=== PATIENT | female | born 1995 | race Two or more races ===

== ENCOUNTER 2016-08-08 09:28 | Outpatient (CLI) | payer OTHER, MEDICAID | END 2016-08-08 10:49 | disposition home or self-care (01) | LOC: FBCOUT 09:28 → FBC 09:29 → FBCOUT 10:49 | PROVIDERS: ATTEND Obstetrics & Gynecology | DX: O26.899 Other specified pregnancy related conditions, unspecified trimester (principal); Z3A.00 Weeks of gestation of pregnancy not specified | CPT/HCPCS: 59025; 81002; G0463 ==

== ENCOUNTER 2016-09-21 16:28 | Outpatient (CLI) | payer OTHER, MEDICAID ==
--- NOTE | 2016-09-21 22:05 | US ---
BIOPHYSICAL PROFILE COMPARISON: 05/21/2016 HISTORY: 21 years old. Gestational age 40 weeks 1 day. Postdates. FINDINGS: breathing movements: 2 motion: 2 tone: 2 Amniotic fluid volume: 2 (SHYANN 6.4 cm) the deepest pocket 5.5 cm. heart rate: 141 bpm Presentation: Cephalic IMPRESSION: 1. Normal biophysical profile score 8 out of 8. 2. Amniotic fluid volume 6.4 cm, deepest pocket 5.5 cm. 3. Cephalic position.
== END 2016-09-21 17:40 | disposition home or self-care (01) ==
LOC: FBCOUT 16:28 → FBC 16:29 → FBCOUT 17:40
PROVIDERS: ATTEND Obstetrics & Gynecology
DX: O48.0 Post-term pregnancy (principal); Z3A.40 40 weeks gestation of pregnancy

== ENCOUNTER 2016-09-24 02:57 | Outpatient (CLI) | payer OTHER, MEDICAID ==
[2016-09-24 03:36] VITALS: BMI 31.1
== END 2016-09-24 07:38 | disposition home or self-care (01) ==
LOC: FBCOUT 02:57 → FBC 02:57 → FBCOUT 07:38
PROVIDERS: ATTEND Obstetrics & Gynecology
DX: O47.9 False labor, unspecified (principal); Z3A.00 Weeks of gestation of pregnancy not specified
CPT/HCPCS: 59025; G0463

== ENCOUNTER 2016-09-24 16:08 | Outpatient (CLI) | payer OTHER, MEDICAID ==
[2016-09-24 16:59] VITALS: BMI 31.1
[2016-09-24] MEDS ORDERED: MORPHINE SULFATE 10 MG/ML SYRINGE IM ONE (19:40)
[2016-09-24] MEDS ORDERED: PROMETHAZINE HCL 25 MG/ML VIAL IM ONE (19:40)
== END 2016-09-24 20:44 | disposition home or self-care (01) ==
LOC: FBCOUT 16:08 → FBC 16:08 → FBCOUT 20:44
PROVIDERS: ATTEND Obstetrics & Gynecology
DX: O47.9 False labor, unspecified (principal); Z3A.00 Weeks of gestation of pregnancy not specified
CPT/HCPCS: 96372; 59025; J2270; J2550; G0463

== ENCOUNTER 2016-09-26 09:57 | Inpatient (IN) | payer OTHER, MEDICAID ==
[2016-09-26 10:53] VITALS: BMI 30.7
[2016-09-26] MEDS ORDERED: LACTATED RINGERS 1,000 ML IV PRN (11:31)
[2016-09-26] MEDS ORDERED: OXYTOCIN IN LR 500 ML IV ONE (11:31)
[2016-09-26] MEDS ORDERED: LACTATED RINGERS 1,000 ML ONE (12:21)
[2016-09-26] MEDS ORDERED: IV START KIT ONE (12:21)
[2016-09-26] MEDS ORDERED: PUMP TUBING ONE (12:22)
[2016-09-26] MEDS ORDERED: LIDOCAINE Viscous 2% 15 ML UDCUP ONE (12:22)
[2016-09-26] MEDS ORDERED: MINERAL OIL 25 ML BOT ONE (12:22)
[2016-09-26] MEDS ORDERED: OXYTOCIN 10 UNITS/ML VIAL ONE ×2 (12:22→21:02)
[2016-09-26] MEDS ORDERED: LIDOCAINE 1% (PRES FREE) 30 ML VIAL ONE (12:22)
[2016-09-26] MEDS ORDERED: OXYTOCIN IN LR 0 ML IV ONE (12:23)
[2016-09-26] MEDS ORDERED: SODIUM CHLORIDE 0.9% FLUSH 10 ML ONE (12:23)
--- NOTE | 2016-09-26 12:44 | HP ---
Gay Cedillo : 1995 HISTORY OF PRESENT ILLNESS: This is a 21-year-old female with estimated date of delivery 09/20/2016 at 40.6 weeks admitted in labor. She was seen in the office today with having strong contractions since around 11:00 p.m. yesterday. She was sent to [facility] for monitoring labor. In the office she was 4 cm and 90% effaced and then rechecked in the [facility] and found to be 5 cm. She did not give any history of ruptured membranes at home and the membranes did feel intact during her office visit. 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 Sexually transmitted diseases were negative. PAST MEDICAL HISTORY: Negative. SOCIAL HISTORY: Nonsmoker, nondrinker. PAST SURGICAL HISTORY: Negative. FAMILY HISTORY: Negative. PHYSICAL EXAMINATION: GENERAL: Healthy female in labor. HEENT: Normal. NECK: Supple. Thyroid not palpable, soft, no masses. HEART: Regular sinus rhythm. No murmurs. LUNGS: Clear. ABDOMEN: Gravid, estimated weight 6-1/2 to 7 pounds. PELVIC: From the office showed the cervix to be 4 cm vertex presentation, -1 station, and 90% effaced. IMPRESSION: 40.6 week intrauterine in labor. PLAN: Anticipate vaginal delivery. She is Group B Strep negative. JOB: [id number]
--- NOTE | 2016-09-26 13:08 | PDOC36 ---
Provider Note Note: ob note: cervix 6cm/90% effaced/vertex 0 station. category 1 tracing. arom performed, blood tinged, watery amniotic fluid. patient declined epidural and analgesics.
[2016-09-26 13:29] LABS: HEMATOCRIT 32.9 % (37.0-47.0); MEAN CELL VOLUME 87.7 fl (81.0-99.0); MEAN CORPUSCULAR HEMOGLOBIN 29.3 pg (27.0-31.0); MEAN CORPUSCULAR HGB CONC 33.4 g/dl (33.0-37.0); RED CELL DISTRIBUTION WIDTH 13.8 % (11.5-14.5)
[2016-09-26 16:01] LABS: SPECIFIC GRAVITY 1.015 (1.001-1.030); URINE BILIRUBIN NEGATIVE (NEGATIVE); URINE BLOOD 3+ (NEGATIVE); URINE GLUCOSE (UA) NEGATIVE (NEGATIVE); URINE LEUKOCYTE ESTERASE 2+ (NEGATIVE); URINE NITRITE NEGATIVE (NEGATIVE); URINE PROTEIN 2+ (NEGATIVE); URINE UROBILINOGEN NORMAL (0-1 mg/dl)
[2016-09-26 16:05] LABS: URINE APPEARANCE TURBID; URINE COLOR DARK YELLOW
[2016-09-26 16:14] LABS: URINE AMORPHOUS SEDIMENT MODERATE; URINE RBC 15-20 /hpf; URINE WBC 30-40 /hpf
[2016-09-26 16:15] LABS: URINE BACTERIA RARE
[2016-09-26] MEDS ORDERED: BUTORPHANOL TARTRATE 1 MG/ML VIAL IV ONE (19:44)
--- NOTE | 2016-09-26 20:22 | PDOC36 ---
Provider Note Note: ob note: cervix 6-7cm/100%/vertex 0 station. rot position. i discussed minimal cervical change since 13:05 hrs and possible causes, including large baby, position, narrow pelvis, insufficient contractions, short stature. watery meconium present. patient has been having regular contractions every 2-3 minutes since admission with initial progress for 4 to 6 cm. category 2 tracing with variable decelerations. discussed pitocin, which i am not recommending because of possibility of hyperstimulation of uterus. discussed continuing labor vs c section. patient on last exam at 19:45hrs, wanted to wait another hour. staadol requested and ordered. imp: arrest of decent and dilatation, category 2 tracing.
[2016-09-26] MEDS ORDERED: PHENYLEPHRINE 10 MG/1 ML (1%) VIAL ONE (21:02)
[2016-09-26] MEDS ORDERED: FENTANYL 100 MCG/2 ML VIAL ONE (21:02)
[2016-09-26] MEDS ORDERED: SPINAL PROCEDURAL TRAY 1 EACH ONE (21:02)
[2016-09-26] MEDS ORDERED: ONDANSETRON 4 MG/2ML 2 ML VIAL ONE (21:02)
[2016-09-26] MEDS ORDERED: MORPHINE SULFATE (DURAMORPH) 1 MG/ML 10ML AMP ONE (21:02)
[2016-09-26] MEDS ORDERED: SODIUM CHLORIDE 0.9% FLUSH 0 ML ONE (21:02)
[2016-09-26] MEDS ORDERED: CEFAZOLIN SODIUM 2 GRAM DUPLEX 2 G in Premix (D5W) 50 ml 1 EACH IV PRN (21:10)
--- NOTE | 2016-09-26 21:10 | PDOC36 ---
Provider Note Note: ob note: cervix unchanged at 6-7 cm/100 effaced/vertex 0 station with caput present. minimal variability on tracing. discussed failure of decent and dilation with patient, partner and family, reviewed reasons for cesarian section , complications but not limited to infections, hemorrhage, anesthesia accidents , and alternatives including continuation of labor. patient, family and partner at this time would like to proceed with cesarian section. all questions were addressed using simple language. informed consent taken in presence of third constitution party.
[2016-09-26] MEDS ORDERED: LACTATED RINGERS 1,000 ML IV SCH (21:15)
[2016-09-26] MEDS ORDERED: CITRIC ACID/SODIUM CITRATE 15 ML UDCUP PO ONE (21:16)
[2016-09-26] MEDS ORDERED: FAMOTIDINE 10 MG/ML 2ML VIAL ONE (21:16)
[2016-09-26] MEDS ORDERED: CEFAZOLIN SODIUM 2 GRAM DUPLEX 50 ML IV ONE (21:34)
[2016-09-26] MEDS ORDERED: KETOROLAC TROMETHAMINE 30 MG/ML 1 ML VIAL ONE (22:20)
[2016-09-26] MEDS ORDERED: DIPHENHYDRAMINE HCL 50 MG/1 ML VIAL IV PRN ×2 (22:37→23:00)
[2016-09-26] MEDS ORDERED: LANOLIN 50 APPLIC/7G TUBE TP PRN (22:37)
[2016-09-26] MEDS ORDERED: DIPHENHYDRAMINE HCL 25 MG CAPSULE PO PRN (22:37)
--- NOTE | 2016-09-26 22:37 | PCMBPN ---
Brief Post Op Note: Date of Procedure: 09/26/16 Start Time: Preoperative Diagnosis: 1. failure of decent and dilatation, transverse arrest, category 2 tracing Postoperative Diagnosis: 1. Same Procedure: primary lower segment cesarian section Surgeon: Edmond oFster Assist:ms. mirian mayers Anesthesia: spinal, mr jimenez Findings: term sized uterus,both ovaries and tubes normal, meconium stained fluid, live baby boy, weight 7 lbs 2 oz, rot position, 8/9 at one and five minutes, placenta meconium stained and intact Condition: stable Complications: none IV Fluids: mLs of LR Urine Output: mLs Estimated Blood Loss: 400 mLs Tourniquet Time: N/A Specimens: placenta to pathology Implants: Drains: N/A closure mariano. patient tolerated procedure well and was returned to recovery room in stable condition with dutta draining clear yellow urine.
[2016-09-26] MEDS ORDERED: NALOXONE HCL 0.4 MG/ML VIAL IV PRN (23:00)
[2016-09-26] MEDS ORDERED: PROMETHAZINE HCL 25 MG/ML VIAL IM PRN (23:00)
[2016-09-26] MEDS ORDERED: NALBUPHINE HCL 20 MG/ML AMP IV PRN (23:00)
[2016-09-26] MEDS ORDERED: EPHEDRINE SULFATE 50 MG/ML 1ML VIAL IV PRN (23:00)
[2016-09-26] MEDS ORDERED: HYDROMORPHONE HCL 2 MG/ML SYRINGE IV PRN (23:00)
[2016-09-26] MEDS ORDERED: KETOROLAC TROMETHAMINE 30 MG/ML 1 ML VIAL IV SCH (23:00)
[2016-09-26] MEDS ORDERED: HYDROMORPHONE HCL 1 MG/ML SYRINGE IV PRN (23:00)
[2016-09-26] MEDS ORDERED: ONDANSETRON 4 MG/2ML 2 ML VIAL IV PRN (23:00)
[2016-09-27] MEDS: OXYCODONE/ACETAMINOPHEN 5/325 MG TABLET PO PRN (01:44)
[2016-09-27] MEDS: LACTATED RINGERS 1,000 ML IV SCH ×3 (01:44→21:33)
[2016-09-27] MEDS: KETOROLAC TROMETHAMINE 30 MG/ML 1 ML VIAL IV SCH ×3 (04:10→16:57)
[2016-09-27 07:05] LABS: HEMATOCRIT 28.9 % (37.0-47.0); HEMOGLOBIN 9.5 gm/l (12.0-16.0); MEAN CELL VOLUME 88.4 fl (81.0-99.0); MEAN CORPUSCULAR HEMOGLOBIN 29.1 pg (27.0-31.0); MEAN CORPUSCULAR HGB CONC 32.9 g/dl (33.0-37.0); RED CELL DISTRIBUTION WIDTH 14.2 % (11.5-14.5)
--- NOTE | 2016-09-27 07:33 | OP ---
Gay Cedillo : 1995 NAME OF OPERATION: Primary lower segment section. PREOPERATIVE DIAGNOSIS: Failure of descent and dilatation, transverse arrest, and category II tracing. POSTOPERATIVE DIAGNOSES: Failure of descent and dilatation, transverse arrest, and category II tracing. CIRCULATION CLERK: Dr. Edmond Dumont. TRADE SHOW MANAGER: Ms. Parra. ANESTHESIA: Steve, Spinal. DESCRIPTION OF PROCEDURE: Dictation begins with patient in the supine position after spinal anesthesia was performed. The Trinidad was draining clear yellow urine at the onset of the procedure. The abdomen was prepared with Chloraprep and draped in the usual manner for pfannenstiel incision after appropriate drying time. After a timeout was performed the skin was tested and found to be with complete anesthesia and then a knife was used to make a pfannenstiel incision through the skin which was carried down to the subcutaneous tissue to the rectus abdominis fascia which was nicked with a knife and carried laterally with Jarrett scissors. All bleeding points were clamped with Leona's and bovied. The superior portion of the fascia was then grasped with Dinesh clamps. The median raphe divided with Jarrett scissors and a similar procedure was performed in the lower end of the incision. The muscle was then split in the mid portion. The peritoneum identified and picked up with two Leona clamps, divided in between with the Metzenbaum scissors, and then the peritoneum was stretched laterally. Findings included a term sized uterus, both ovaries and tubes appeared normal. A Nunnelly retractor was inserted lower in the incision and then anterior visceroperitoneum was grasped with a tissue forceps, nicked with the Metzenbaum scissors, and carried laterally with the same scissors. The bladder flap was then bluntly dissected down and replaced underneath the De retractor. A knife was then used to make a lower uterine incision which was stretched laterally. There was meconium stained fluid noted and then a live baby body was delivered from the ROT position. He cried spontaneously. He was delivered uneventfully through the incision. The was 8 and 9 at one and five minutes respectively. The weight was 7 pounds 2 ounces. With the baby out the cord was clamped twice with 2 Leona clamps, divided in between with bandage scissors and the baby was given to the nurses for care. Cord blood was obtained and then the placenta was delivered manually and intact. The placenta was meconium stained and will be sent to pathology. With the placenta out the uterus was wiped clean of membranes and blood clots. Ring forceps were placed at the 3, 6, 9, and 12 o'clock positions of the uterus. The uterus was closed in two layers with #1 Chromic continuous interlocking sutures, the second layer imbricating the first. One additional bleeding point in the right corner was individually sutures with the same material resulting in complete hemostasis. Now with sponge and instrument count reported as correct and complete hemostasis achieve the rectus abdominis muscle was reapproximated with 1 Chromic interrupted sutures x3 and then the fascia was closed in right and left halves with 1 Vicryl continuous sutures locking the first stitch on either side. Subcutaneous bleeding points were bovied prior to closure of skin. The skin was closed with mariano. Estimated blood loss was 400 mL. Patient tolerated procedure well and was returned to recovery room in stable condition with a Trinidad draining clear yellow urine. Ancef was given prior to the onset of surgery. JOB: [id number]
--- NOTE | 2016-09-27 09:00 | PDOC44 ---
- Subjective Day: 1 (feels well) Reports Flatus, Reports Pain Tolerable, Reports , Reports Lochia Light, Reports Tolerating Clear Liquids, Denies Nausea, Denies Vomiting, Denies Fever - Objective Temp Pulse Resp BP Pulse Ox 98.3 F 97 16 106/55 100 09/27/16 06:11 09/27/16 06:11 09/27/16 06:11 09/27/16 06:11 09/27/16 01:59 Lab Results 09/27/16 09/26/16 06:15 12:50 WBC 18.3 H 17.3 H RBC 3.27 L 3.75 L Hgb 9.5 L 11.0 L Hct 28.9 L 32.9 L Plt Count 198 238 09/27/16 06:15 MCHC 32.9 L Current Medications Generic Name Dose Route Start Last Admin Trade Name Freq PRN Reason Stop Dose Admin Diphenhydramine HCl 25 - 50 mg 09/26/16 22:37 Benadryl PO Q6H PRN Itching (Mild/Moderate) Diphenhydramine HCl 25 - 50 mg 09/26/16 22:37 Benadryl IV Q6H PRN Itching (Severe) Diphenhydramine HCl 25 - 50 mg 09/26/16 23:00 Benadryl IV 09/27/16 21:40 Q4H PRN Itching Docusate Sodium 100 mg 09/27/16 09:00 Colace PO BID LENA Emollient Ointment 1 applic 09/26/16 22:37 Avz-Z-Tautue TP PRN PRN sore nipples Ephedrine Sulfate 5 - 10 mg 09/26/16 23:00 Ephedrine Sulfate IV 09/27/16 21:40 Q5M PRN Hydromorphone HCl 0.5 - 2 mg 09/26/16 23:00 Dilaudid IV 09/27/16 21:40 Q1H PRN Pain (Breakthrough) Hydromorphone HCl 0.5 - 2 mg 09/26/16 23:00 Dilaudid IV 09/27/16 21:40 Q1H PRN Pain Lactated Ringer's 1,000 mls @ 100 mls/hr 09/27/16 01:30 09/27/16 01:44 Lactated Ringers IV 100 mls/hr .Q10H LENA Administration Ibuprofen 800 mg 09/26/16 22:37 Motrin PO Q8H PRN Pain Ibuprofen 800 mg 09/27/16 22:00 Motrin PO Q8H PRN Pain Ketorolac Tromethamine 30 mg 09/27/16 04:00 09/27/16 04:10 Toradol IV 09/27/16 21:40 30 mg Q6H LENA Administration Multivi/Iron Carb/Fe Sulf/FA/Prenat 1 tab 09/27/16 09:00 Plus PO DAILY LENA Nalbuphine HCl 1 - 5 mg 09/26/16 23:00 Nubain IV 09/27/16 21:40 Q4H PRN Itching Naloxone HCl 0.2 - 0.4 mg 09/26/16 23:00 Narcan IV 09/27/16 21:40 Q5M PRN Ondansetron HCl 4 mg 09/26/16 23:00 Zofran IV 09/27/16 21:40 Q6H PRN Nausea/Vomiting Oxycodone/Acetaminophen 1 - 2 tab 09/26/16 22:37 09/27/16 01:44 Percocet 5/325 PO 1 tab Q4H PRN Administration Pain (Moderate) Promethazine HCl 6.25 - 12.5 mg 09/26/16 23:00 Phenergan IM 09/27/16 21:40 Q4H PRN Nausea/Vomiting Sodium Chloride 10 ml 09/26/16 22:37 Normal Saline 10ml Flush IV PRN PRN IV Flush Sodium Chloride 10 ml 09/27/16 09:00 Normal Saline 10ml Flush IV Q8HR LENA Sodium Chloride 10 ml 09/27/16 08:26 Normal Saline 10ml Flush IV PRN PRN - Physical Exam General: Afebrile, No Acute Distress Psych/Mental Status: Mood/Affect Appropriate, Judgment/Insight Intact, Bonding Well Lungs: Clear to Auscultation Bilaterally, Normal Air Movement Breast: Soft, Skin intact, Nipples Intact, No Tenderness, No Erythema, No Engorged Fundus: Firm, Midline, Below Umbilicus, Other (nontender) Abdomen: Hypoactive Bowel Sounds, Other (passed flatus, no bowel movement yet), No Tenderness, No Distention Lochia: Light Extremities: No Tenderness Wound SPORTS BETTING MANAGER: Dressing in Place, Dressing Clean/Dry/Intact - Problems:Assessment/Plan (1) Deep transverse arrest of labor, delivered Status: Acute (2) Failure of descent in labor, delivered, current hospitalization Status: Acute (3) Labor and delivery complicated by meconium in amniotic fluid Status: Acute (4) Failure of cervical dilation Status: Acute (5) Short stature Status: Acute (6) Anemia, Status: Acute Disposition: Stable
[2016-09-27] MEDS: PRENATAL VIT/FE FUMARATE/FA 1 TABLET PO SCH (13:05)
[2016-09-27] MEDS: DOCUSATE SODIUM 100 MG CAPSULE PO SCH ×2 (13:05→22:28)
[2016-09-27] MEDS: FERROUS SULFATE (65 Fe) 325 MG TABLET PO SCH (13:05)
[2016-09-27] MEDS ORDERED: IBUPROFEN 800 MG TABLET PO PRN (22:00)
[2016-09-28] MEDS: IBUPROFEN 800 MG TABLET PO PRN ×3 (01:54→18:23)
[2016-09-28] MEDS: OXYCODONE/ACETAMINOPHEN 5/325 MG TABLET PO PRN (03:08)
[2016-09-28] MEDS: LACTATED RINGERS 1,000 ML IV SCH (07:27)
--- NOTE | 2016-09-28 09:09 | PDOC44 ---
- Subjective Day: 2 Doing well. No complaints. Reports Flatus, Reports Pain Tolerable, Reports , Reports Tolerating Regular Diet - Objective Temp Pulse Resp BP Pulse Ox 97.5 F 90 16 125/73 100 09/28/16 07:49 09/28/16 08:11 09/28/16 08:11 09/28/16 08:11 09/27/16 01:59 Current Medications Generic Name Dose Route Start Last Admin Trade Name Freq PRN Reason Stop Dose Admin Diphenhydramine HCl 25 - 50 mg 09/26/16 22:37 Benadryl PO Q6H PRN Itching (Mild/Moderate) Diphenhydramine HCl 25 - 50 mg 09/26/16 22:37 Benadryl IV Q6H PRN Itching (Severe) Docusate Sodium 100 mg 09/27/16 09:00 09/27/16 22:28 Colace PO 100 mg BID LENA Administration Emollient Ointment 1 applic 09/26/16 22:37 Xhw-[id number]-Uuqeey TP PRN PRN sore nipples Ferrous Sulfate 325 mg 09/27/16 12:00 09/27/16 13:05 Ferrous Sulfate PO 325 mg DAILY LENA Administration Ibuprofen 800 mg 09/26/16 22:37 09/28/16 01:54 Motrin PO 800 mg Q8H PRN Administration Pain Ibuprofen 800 mg 09/27/16 22:00 Motrin PO Q8H PRN Pain Multivi/Iron Carb/Fe Sulf/FA/Prenat 1 tab 09/27/16 09:00 09/27/16 13:05 Plus PO 1 tab DAILY LENA Administration Oxycodone/Acetaminophen 1 - 2 tab 09/26/16 22:37 09/28/16 03:08 Percocet 5/325 PO 1 tab Q4H PRN Administration Pain (Moderate) Sodium Chloride 10 ml 09/26/16 22:37 Normal Saline 10ml Flush IV PRN PRN IV Flush Sodium Chloride 10 ml 09/27/16 09:00 09/28/16 05:44 Normal Saline 10ml Flush IV 10 ml Q8HR LENA Administration Sodium Chloride 10 ml 09/27/16 08:26 Normal Saline 10ml Flush IV PRN PRN - Physical Exam General: Afebrile Psych/Mental Status: Mood/Affect Appropriate, Judgment/Insight Intact, Bonding Well Neurological: Grossly Intact, Alert, Oriented x 4 HEENT: Atraumatic, PERRLA, EOMI, Mucous membr. moist/pink Lungs: Clear to Auscultation Bilaterally, Normal Air Movement Cardiovascular: Regular Rate and Rhythm, Normal S1, Normal S2 Breast: Soft, Skin intact, Nipples Intact Fundus: Firm, Midline, Below Umbilicus Abdomen: Normal Bowel Sounds Lochia: Light Extremities: Full ROM Skin: Normal Color, Warm, Dry, Intact Wound CONSTRUCTION CODE ADMINISTRATOR: Well Approximated, Suzy Intact - Problems:Assessment/Plan (1) Failure of descent in labor, delivered, current hospitalization Status: AcuteAssessment/Plan: Continue postoperative care Encourage , ambulation Anticipate d/c home tomorrow. Disposition: Anticipate DC Home Tomorrow
[2016-09-28] MEDS: PRENATAL VIT/FE FUMARATE/FA 1 TABLET PO SCH (09:53)
[2016-09-28] MEDS: DOCUSATE SODIUM 100 MG CAPSULE PO SCH (09:53)
[2016-09-28] MEDS: FERROUS SULFATE (65 Fe) 325 MG TABLET PO SCH (09:53)
[2016-09-28] MEDS ORDERED: LACTATED RINGERS 1,000 ML IV SCH (15:45)
[2016-09-29] MEDS: DOCUSATE SODIUM 100 MG CAPSULE PO SCH ×2 (00:36→09:31)
[2016-09-29] MEDS: OXYCODONE/ACETAMINOPHEN 5/325 MG TABLET PO PRN ×2 (02:06→09:31)
[2016-09-29] MEDS: IBUPROFEN 800 MG TABLET PO PRN ×2 (02:06→11:13)
[2016-09-29 07:41] VITALS: BP 101/53
[2016-09-29] MEDS: PRENATAL VIT/FE FUMARATE/FA 1 TABLET PO SCH (09:31)
[2016-09-29] MEDS: FERROUS SULFATE (65 Fe) 325 MG TABLET PO SCH (09:31)
--- NOTE | 2016-09-29 10:21 | PDOC39B ---
Hospital Course: ADMIT DATE: 09/26/16 DISCHARGE DATE: 09/29/16 ADMISSION DIAGNOSES: Active labor, Transverse arrest PROCEDURES: Primary c/section, low uterine segment transverse incision. HISTORY OF PRESENT ILLNESS: 21 year old G1 T0 L0 at 40 weeks 6 days presenting with active labor at 4 cm. HOSPITAL COURSE: The patient progressed to 6-7 cm but then no further progress with a cat 2 tracing. Eventually she was delivered by c/section of a baby boy "Manoj" weighing 7lb2. Post-op Hct was 28.9% and Hgb 9.5. Pt is doing well clinically. By day of discharge the patient is ambulating, eating, voiding, and passing flatus without difficulty. Pain is controlled and lochia is appropriate. She is . - Physical Exam Vital Signs: Temp Pulse Resp BP Pulse Ox 97.5 F 70 15 101/53 100 09/29/16 07:32 09/29/16 07:32 09/29/16 07:32 09/29/16 07:32 09/27/16 01:59 General: Afebrile Psych/Mental Status: Mood/Affect Appropriate, Bonding Well Neurological: Alert, Oriented x 4, Normal Speech Lungs: Clear to Auscultation Bilaterally Cardiovascular: Regular Rate and Rhythm Fundus: Firm, Below Umbilicus Abdomen: Normal Bowel Sounds Lochia: Light Skin: Normal Color, Warm, Dry Wound: Well Approximated, [place] Intact - Discharge Diagnosis (1) Anemia, Status: Acute (2) Deep transverse arrest of labor, delivered Status: Acute (3) delivery delivered Status: AcuteAssessment/Plan: Normal post-op recovery. - Discharge Plan Condition: Good Disposition: Home Prescriptions: Docusate Sodium [COLACE 100 MG CAPSULE (SHF)] 100 mg PO BID #60 Ibuprofen [IBUPROFEN 800 MG TABLET (SHF)] 800 mg PO Q8H PRN #100 PRN Reason: Pain FERROUS SULFATE (65 Fe) [IRON FERROUS SULFATE 325 MG TABLET (SHF)] 325 mg PO DAILY #100 Oxycodone HCl/Acetaminophen [PERCOCET 5/325 MG TABLET (SHF)] 1 - 2 tab PO Q4H PRN #60 PRN Reason: Pain (Moderate) Follow-Up: Edmond Foster MD [Primary Care Provider] - In 2-3 days
[2016-09-29] MEDS ORDERED: MEASLES,MUMPS&RUBELLA VACCINE 0.5 ML VIAL SUB-Q V ONE (10:26)
--- NOTE | 2016-10-01 13:17 | SURGPATH ---
[facility] [address] [place] [id number] Patient Name: YOSELYN BARBOZA MR#: [id number] : 1995 Gender: F Specimen #: [id number] Collected: 09/26/2016 Received: 09/28/2016 Reported: 10/01/2016 Submitting Phys: ARMOND PAGE I Copy To Phys: [facility] Clinical History / Pre-Operative Diagnosis: Primary section for failure to progress Specimen Source / Surgical Procedure Performed: Placenta Interpretation: PLACENTA, DELIVERED (560 G): - THIRD TRIMESTER PLACENTA WITH PLACENTAL INFARCT (LESS THAN 5% OF TOTAL DISC VOLUME) AND MARKED ACUTE CHORIOAMNIONITIS. - THREE-VESSEL UMBILICAL CORD WITH MILD ACUTE FUNISITIS. Electronically Signed Out Daron Pugh M.D., Ph.D. Gross Description: The specimen is received fresh labeled with the patient's name. Placenta type: Christensen Placental disc weight and dimensions: 560 g, 18 x 17 x 3.5 cm Umbilical cord: The centrally inserted 45 cm umbilical cord is normally coiled with three vessels Membranes: Discolored edematous, normally inserted Subchorionic fibrin: Moderate Infarcts/intervillous thrombi: There are a few scattered grande abnormal areas which are up to 1 cm and together less than 5% of the placental volume. Other: Gross Summary: This is a 560 g christensen placenta with discolored membranes and a few small lesions. A. umbilical cord and lesion B. membranes C.-D. central placenta [place], [place] Microscopic Description: Multiple sections of the umbilical cord, placental membranes, and placental disc are microscopically examined. The umbilical cord has three vessels on cross-section. There is a mild acute inflammatory cell infiltrate. The placental membranes have a marked acute inflammatory cell infiltrate. There is no evidence of increased pigmentation. The placental disc is composed of mature, third trimester chorionic villi with scattered fibrin deposition and microcalcifications. A placental infarct involving less than 5% of the total disc volume is seen. 1: [id number] O43.813 O41.1230
== END 2016-09-29 12:54 | disposition home or self-care (01) | DRG 766 ==
LOC: FBC 09:57 → FBCOUT 09:57 → FBC 11:25 → FBCOUT 11:25 → FBC 21:33
PROVIDERS: ADMIT Obstetrics & Gynecology; ATTEND Obstetrics & Gynecology
PROC: 10907ZC Drainage of Amniotic Fluid, Therapeutic from Products of Conception, Via Natural or Artificial Opening (ICD-10-PCS; 2016-09-26)
PROC: 10D00Z1 Extraction of Products of Conception, Low, Open Approach (ICD-10-PCS; principal; 2016-09-27)
DX: O76 Abnormality in fetal heart rate and rhythm complicating labor and delivery (principal); O64.0XX0 Obstructed labor due to incomplete rotation of fetal head, not applicable or unspecified; Z3A.41 41 weeks gestation of pregnancy; Z37.0 Single live birth; O77.0 Labor and delivery complicated by meconium in amniotic fluid; O90.81 Anemia of the puerperium; D64.9 Anemia, unspecified

== ENCOUNTER 2016-10-01 15:52 | Outpatient (CLI) | payer OTHER, MEDICAID | END 2016-10-01 15:53 | disposition home or self-care (01) | LOC: BABIESSH 15:52 | PROVIDERS: ATTEND Obstetrics & Gynecology | DX: Z39.1 Encounter for care and examination of lactating mother (principal) ==

== ENCOUNTER 2016-10-02 18:07 | Emergency (ER) | payer OTHER, MEDICAID ==
[2016-10-02] MEDS ORDERED: IOPAMIDOL 300 (61%) 100 ML VIAL IV ONE (18:08)
[2016-10-02] MEDS ORDERED: LACTATED RINGERS 1,000 ML ONE (19:45)
[2016-10-02] MEDS ORDERED: MORPHINE SULFATE 4 MG/ML SYRINGE ONE (19:46)
--- NOTE | 2016-10-02 20:41 | CT ---
Exam: CT abdomen and pelvis with contrast COMPARISON: None INDICATION: section on 09/26/2016, now having foul-smelling drainage from abdominal incision. TECHNIQUE: CT examination of the abdomen and pelvis was obtained following the administration of 100 mL Isovue-300 intravenous contrast. Findings: Postsurgical changes of recent section are identified. Skin mariano are present. There is a prominent amount of subcutaneous gas in the region of the incision although no fluid or drainable fluid collection is seen in this location. Skin thickening is noted in the region of the Pfannenstiel incision and there is minor fat stranding which is nonspecific. Recent uterus is appreciated. There is a significant amount of gas within the endometrial canal as well as within the anterior lower uterine segment in the region of recent section. There is minimal endometrial enhancement. There is no free intraperitoneal air. Moderate amount of stool seen within the colon. There is no evidence of bowel obstruction. There is no free air or intraperitoneal fluid. There is no pelvic hematoma. Urinary bladder is unremarkable. Punctate nonobstructing calculus is noted within the left kidney. The liver, spleen, pancreas, right kidney, adrenal glands and gallbladder are unremarkable. Lung bases are clear. No worrisome osseous abnormality is identified. IMPRESSION: Gas is identified within the endometrial cavity and anterior lower uterine segment (in the region of recent section.) Findings are concerning for endometritis. Given the gas in the region of incision of the lower uterine segment, uterine dehiscence cannot be excluded. Gas is identified beneath the mariano in the region of the Pfannenstiel incision although there is no fluid or drainable fluid collection. There is no pelvic hematoma or pelvic abscess. Findings were discussed with Dr. Ariel Moreira at 2035 hours 10/02/2016.
[2016-10-02] MEDS ORDERED: SODIUM CHLORIDE 0.9% 50 ML IV ONE (20:58)
[2016-10-02] MEDS ORDERED: METRONIDAZOLE 500 MG/NS 100 ML 100 ML IV ONE (20:58)
[2016-10-02] MEDS ORDERED: CEFTRIAXONE SODIUM 1 G VIAL ONE (20:58)
[2016-10-02 21:27] LABS: ABSOLUTE NEUTROPHIL COUNT 11.7 K/mm3 (1.8-7.7); BASO % 0.2 % (0.2-1.0); EOS # 0.3 (0.0-0.5); EOS % 2.2 % (0.9-2.9); IMM NEUT # 0.3 K/mm3 (0-0.2); LYMPH # 1.7 (1.0-4.8); LYMPH % 11.6 % (15-45); MEAN CELL VOLUME 92.2 fl (81.0-99.0); MEAN CORPUSCULAR HEMOGLOBIN 28.8 pg (27.0-31.0); MEAN CORPUSCULAR HGB CONC 31.3 g/dl (33.0-37.0); MEAN PLATELET VOLUME 9.8 fl (7.4-10.4); MONO # 0.8 (0.0-0.8); MONO % 5.3 % (4-12); NEUT % 78.7 % (43-75); PLATELET COUNT 351 K/mm3 (130-400); RED CELL DISTRIBUTION WIDTH 15.1 % (11.5-14.5)
[2016-10-02 23:08] LABS: BAND 8 % (0-10); BASOPHIL 0 % (0-1); EOSINOPHIL 1 % (1-3); LYMPHOCYTE 13 % (15-45); MONOCYTE 3 % (4-12); NEUTROPHILS 75 % (43-75); PLATELET ESTIMATE NORMAL (NORMAL); TOTAL CELLS COUNTED 100
== END 2016-10-02 22:59 | disposition home or self-care (01) ==
LOC: ED 18:07 → SUPCPDRO 18:07 → ED 22:59
DX: O86.0 Infection of obstetric surgical wound (principal)
CPT/HCPCS: 83605; 85025; 80048; 74177; 96375; 99284 ×2; 96365; 96367; J2270; J0696; J7120; J7050; Q9967